=== PATIENT | female | born 1985 | race Caucasian/White ===

== ENCOUNTER → 2016-10-27 | Outpatient (CLI) | payer MEDICAID ==
[~2016-10-27] MED LIST: ATIVAN1 MG PO; BOOST237 ML PO; DEPO-PROVE150 MG/1 M IJ; DILANTIN100 MG PO; KEPPRA500 MG PO; [UNRECOGNIZED DRUG - OTHER] PO
== END | disposition home or self-care (01) ==
LOC: PTH.S 07:56
DX: G40.804 Other epilepsy, intractable, without status epilepticus (principal)

== ENCOUNTER → 2016-11-10 | Outpatient (CLI) | payer MEDICAID | END | disposition home or self-care (01) | LOC: PTH.S 08:00 | DX: G40.804 Other epilepsy, intractable, without status epilepticus (principal) ==